=== PATIENT | female | born 1985 | race Caucasian/White ===

== ENCOUNTER 2022-11-15 20:03 | Emergency (ER) | payer MEDICAID, SELFPAY ==
[2022-11-15 20:17] VITALS: BP 147/100; PULSE 82; RESP 16; TEMP 36.6; O2SAT 100
--- NOTE | 2022-11-15 21:29 | ED.GENADULT ---
HPI - General Adult General Chief complaint: Dental/Oral/Mouth Injury/Pain Stated complaint: Tooth pain Time Seen by Provider: 11/15/22 20:49 Source: patient Mode of arrival: ambulatory Limitations: no limitations History of Present Illness HPI narrative: 36-year-old female reports a 2 year history of ongoing issues with her upper right 1st molar. Reports that she had a root canal performed 2 years ago and never had the crown placed that was recommended. She states that ever since this was placed, she has continued to have some mild discomfort. Discomfort has been a little worse the last 2 days. No purulent drainage, no fevers. No new trauma or injury. Reports that she saw a dentist in September, he had recommended that she not have the tooth pulled but rather that her pain was much more likely related to tooth grinding and recommended a mouth guard. She admits to sporadic use of this mouth guard. In the last couple of days, she has not called the dentist for reassessment. She has been taking Tylenol intermittently and it did not adequately improve her symptoms. She does specifically bring up Vicodin a couple of times in my encounter. No difficulty swallowing or breathing. No limitations of eating or appetite. Past medical history notable for depression and anxiety. Allergies are to bee stings. Reports her only long-term medication is sertraline. ROS is notable for the HEENT symptoms as above. Denies any other generalized, HEENT, respiratory skin or musculoskeletal changes. Related Data Home Medications Medication Instructions Recorded Confirmed sertraline 25 mg tablet 12.5 mg PO ONCE 05/28/22 05/28/22 Previous Rx's Medication Instructions Recorded ketorolac 10 mg tablet 10 mg PO Q8H PRN pain #15 tabs 11/15/22 Allergies Allergy/AdvReac Type Severity Reaction Status Date / Time bee venom protein (honey bee) Allergy Mild Anaphylaxis Verified 05/28/22 12:51 [facility] Medical History AOM (acute otitis media) ?H66.90 - Otitis media, unspecified, unspecified ear (ICD-10) Social History Smoking Status: Former smoker Exam Const: Vital Signs, click to edit/add: Vital Signs - 24 hr 11/15/22 20:17 Temperature 97.9 F Pulse Rate [Left P ulse Oximeter] 82 Respiratory Rate 16 Blood Pressure [Ri ght Upper Arm] 147/100 H Pulse Oximetry 100 Oxygen Delivery Me thod Room Air Documenting provider has reviewed patient's vital signs: yes Common normals: no apparent distress General appearance: cooperative and well kempt Other: Well nourished and hydrated. HENMT: Common normals: normocephalic and head/scalp atraumatic Head and scalp: normocephalic and atraumatic Face and sinus: normal facial exam Mouth: oral and palatal mucosa normal Other: Normal tongue, posterior pharynx. Teeth show a confirmed temporary root canal with temporary filling in place. There is very mild irritation on the gum laterally but no significant swelling, redness or purulent drainage. Medially, appears perfectly normal. Several teeth have intact feelings, no broken teeth or severe caries. Eye: Common normals: conjunctivae normal General eye: normal appearance of both eyes Conjunctiva: conjunctiva(e) normal Neck & C-Spine: Common normals: full ROM and no lymphadenopathy Resp: Common normals: normal respiratory effort Effort & inspection: able to speak in complete sentences Neuro: Common normals: moves all extremities and no focal motor deficits Speech: speech normal Psych: Common normals: thought process normal Appearance: well kempt Activity/motor behavior: appropriate eye contact Thought process: normal thought process Skin: Common normals: no rashes or lesions noted General skin exam: no rashes or lesions noted Course Course Hospital Course: No signs of obvious infection or abscess. Counseled patient that she will need to follow up with her dentist. There are no emergent appearing issues in the ED tonight. Counseled patient we do not give narcotic medication for these circumstances. She will need to follow up with her dentist and he may prescribed them if he or she deems appropriate but they are not likely necessary. I do agree that the tooth grinding explains her symptoms more so than the appearance of the tooth. She would not benefit from antibiotics at this time. She is given Toradol 10 mg p.o. x1 in the ED and a prescription for Toradol for pain. She is instructed to use her mouth guard and to follow up with her dentist. Alarm symptoms that would warrant ED presentation were reviewed with her. Vital Signs Vital signs: Initial Vital Signs Temperature 97.9 F 11/15/22 20:17 Temperature Source Temporal Artery Scan 11/15/22 20:17 Pulse Rate 82 11/15/22 20:17 Pulse Rhythm Regular 11/15/22 20:17 Respiratory Rate 16 11/15/22 20:17 Blood Pressure 147/100 H 11/15/22 20:17 Blood Pressure Mean 115 H 11/15/22 20:17 Blood Pressure Position Sitting 11/15/22 20:17 Pulse Oximetry 100 11/15/22 20:17 Oxygen Delivery Method Room Air 11/15/22 20:17 Vital Signs Temperature 97.9 F 11/15/22 20:17 Pulse Rate 82 11/15/22 20:17 Respiratory Rate 16 11/15/22 20:17 Blood Pressure 147/100 H 11/15/22 20:17 Pulse Oximetry 100 11/15/22 20:17 Oxygen Delivery Method Room Air 11/15/22 20:17 Temperature 97.9 F 11/15/22 20:17 Pulse Rate 82 11/15/22 20:17 Respiratory Rate 16 11/15/22 20:17 Blood Pressure 147/100 H 11/15/22 20:17 Pulse Oximetry 100 11/15/22 20:17 Oxygen Delivery Method Room Air 11/15/22 20:17 Discharge Plan Discharge Clinical Impression: Toothache Patient Disposition: Home, Self-Care Condition: Stable Instructions: Toothache (ED) Additional Instructions: As we discussed, there are no signs of any severe abscess or major complication in your mouth. We do not treat dental issues in the emergency department. You will definitely need to follow-up with your dentist regarding a long-term plan for this tooth. It is our policy that we do not give narcotic pain medication for dental issues as well. I have given you Toradol, anti-inflammatory pain medication. You may also continue using your Tylenol. Remember the proper adult dosing is a 1000 mg every 6 hours. I will give you a prescription for Toradol to use for the next few days as well. You may use this up to every 6 hours. You may use it for a total of 5 days. After those 5 days, you may switch to ibuprofen 600 mg every 6 hours as needed for pain. It is okay to use melatonin or Benadryl 25-50 mg at bedtime to help you sleep if the pain is bothersome. May resume all work, recreational and household duties with no restrictions. Activity Level: No Restrictions Discharge Diet: Regular Prescriptions: New ketorolac 10 mg tablet 10 mg PO Q8H PRN (Reason: pain) Qty: 15 0RF No Action sertraline 25 mg tablet 12.5 mg PO ONCE Follow Up/Referrals: Ilda Edge DO [Primary Care Provider] - Stand Alone Forms: [employer] Info Instructions
[2022-11-15] MEDS: KETOROLAC 10 MG TABLET PO (21:49)
== END 2022-11-15 22:07 | disposition home or self-care (01) ==
LOC: ED 21:28
PROVIDERS: Emergency Provider Family Medicine; PCP Family Medicine
DX: K08.89 Other specified disorders of teeth and supporting structures (principal)
CPT/HCPCS: 99282; 99283; A9270

== ENCOUNTER 2023-02-23 21:38 | Emergency (ER) | payer MEDICAID, SELFPAY ==
[2023-02-23 21:51] VITALS: BP 130/83; PULSE 81; RESP 14; TEMP 35.8; O2SAT 99
--- NOTE | 2023-02-23 22:04 | ED_ITS ---
HPI - General Adult General Chief complaint: Extremity Pain/Injury, Upper Stated complaint: Right pinky pain Time Seen by Provider: 02/23/23 21:45 Source: patient Mode of arrival: ambulatory Limitations: no limitations History of Present Illness HPI narrative: 37-year-old female coming in today complaining of pain of her pinky. She states that she had an infection that was drained approximately 1 week ago. She states that in the past week the finger has gotten more erythematous and painful. No systemic symptoms and no pain with movement of the hand. Related Data Home Medications Medication Instructions Recorded Confirmed sertraline 25 mg tablet 12.5 mg PO ONCE 05/28/22 02/23/23 epinephrine 0.3 mg/0.3 mL 0.3 mg IM ONCE PRN allergies 02/23/23 02/23/23 injection, auto-injector Previous Rx's Medication Instructions Recorded cefadroxil 500 mg capsule 500 mg PO BID 7 days #14 caps 02/23/23 Allergies Allergy/AdvReac Type Severity Reaction Status Date / Time bee venom protein (honey bee) Allergy Mild Anaphylaxis Verified 02/16/23 10:45 Review of Systems Status of ROS: Reports: 6 or more systems reviewed and unremarkable except as noted in History and below [facility] Medical History AOM (acute otitis media) ?H66.90 - Otitis media, unspecified, unspecified ear (ICD-10) Social History Smoking Status: Former smoker How often do you have a drink containing alcohol: never AUDIT-C Alcohol total score: 0 Non-prescribed substance use: denies use Exam Narrative: Exam Narrative: Well-nourished well-developed patient, tearful. Alert and oriented. Answers questions appropriately. Patient speaks in full sentences without needing to catch her breath. She does not appear ill or toxic. HEENT: Normocephalic atraumatic. Pupils are equally round reactive to light. Extraocular muscles are intact. Conjunctivae are moist without any icterus noted. Moist mucous membranes. Extremities: Right 5th digit has erythema and warmth with edematous skin surrounding the nail. The erythema extends down to just distal to the DIP. The DIP itself is not swollen or painful. The remainder of the hand appears normal. I do not see any obvious pockets of purulent material. Const: Vital Signs, click to edit/add: Vital Signs - 24 hr 02/23/23 21:51 Temperature 96.4 F L Pulse Rate [Pulse Oximeter] 81 Respiratory Rate 14 Blood Pressure [Ri ght Upper Arm] 130/83 Pulse Oximetry 99 Oxygen Delivery Me thod Room Air Course Vital Signs Vital signs: Initial Vital Signs Temperature 96.4 F L 02/23/23 21:51 Temperature Source Temporal Artery Scan 02/23/23 21:51 Pulse Rate 81 02/23/23 21:51 Pulse Rhythm Regular 02/23/23 21:51 Respiratory Rate 14 02/23/23 21:51 Blood Pressure 130/83 02/23/23 21:51 Blood Pressure Mean 98 02/23/23 21:51 Blood Pressure Position Sitting 02/23/23 21:51 Pulse Oximetry 99 02/23/23 21:51 Oxygen Delivery Method Room Air 02/23/23 21:51 Vital Signs Temperature 96.4 F L 02/23/23 21:51 Pulse Rate 81 02/23/23 21:51 Respiratory Rate 14 02/23/23 21:51 Blood Pressure 130/83 02/23/23 21:51 Pulse Oximetry 99 02/23/23 21:51 Oxygen Delivery Method Room Air 02/23/23 21:51 Temperature 96.4 F L 02/23/23 21:51 Pulse Rate 81 02/23/23 21:51 Respiratory Rate 14 02/23/23 21:51 Blood Pressure 130/83 02/23/23 21:51 Pulse Oximetry 99 02/23/23 21:51 Oxygen Delivery Method Room Air 02/23/23 21:51 Medical Decision Making [facility] Narrative Medical decision making narrative: Paronychia with cellulitis of the 5th digit. Will place the patient on cefadroxil b.i.d.. Follow up on Saturday if not improving. Discharge Plan Discharge Clinical Impression: Paronychia, Cellulitis Patient Disposition: Home, Self-Care Condition: Stable Additional Instructions: Take all antibiotics as prescribed. Follow-up with your primary care provider on Saturday if finger continues to get worse instead of better. Can not stop soaking the finger and can stop applying antibiotic ointment to it. Prescriptions: New cefadroxil 500 mg capsule 500 mg PO BID 7 Days Qty: 14 0RF No Action sertraline 25 mg tablet 12.5 mg PO ONCE epinephrine 0.3 mg/0.3 mL auto-injector 0.3 mg IM ONCE PRN (Reason: allergies) Follow Up/Referrals: Ilda Edge DO [Primary Care Provider] - Stand Alone Forms: [employer] Info Instructions
== END 2023-02-23 22:29 | disposition home or self-care (01) ==
LOC: ED 22:26
PROVIDERS: Emergency Provider Family Medicine; PCP Family Medicine
DX: L03.011 Cellulitis of right finger (principal)
CPT/HCPCS: 99283